=== PATIENT | female | born 1960 | race Two or more races ===

== ENCOUNTER 2022-07-04 19:09 | Inpatient (IN) | payer OTHER ==
[~2022-07-04] VITALS: Ht 165.1 cm; Wt 98.6 kg
[2022-07-04] MEDS ORDERED: ACETAMINOPHEN 325 MG TAB PO ONE (19:45)
[2022-07-04 20:46] LABS: Basophils # (auto) 0.1 10 ^3/uL (0-0.2); Eosinophils # (auto) 0 10 ^3/uL (0-0.8); Eosinophils % (auto) 0.1 % (0.0-7.0); Hematocrit 44.5 % (36.0-46.0); Hemoglobin 15.1 g/dL (12.2-16.2); Lymphocytes # (auto) 0.7 10 ^3/uL (0.4-5.4); Mean Corpuscular Hemoglobin 30.3 pg (28.0-32.0); Monocytes # (auto) 0.4 10 ^3/uL (0-1.3); Neutrophils # (auto) 9.1 10 ^3/uL (1.6-8.6); Neutrophils % (auto) 87.9 % (37.0-80.0); Red Cell Distribution Width 13.4 % (11.8-14.3); White Blood Cell 10.3 10^3/uL (4.4-10.8)
[2022-07-04 21:00] LABS: Alanine Aminotransferase 40 U/L (13-56); Albumin 4.1 g/dL (3.4-5.0); Anion Gap 12 (5-15); Aspartate Aminotransferase 40 U/L (15-37); BUN/Creatinine Ratio 18.2; Blood Urea Nitrogen 16 mg/dL (7-18); Calcium 9.1 mg/dL (8.5-10.1); Carbon Dioxide 23 mmol/L (21-32); Chloride 99 mmol/L (98-107); GFR African American 83 mL/min; GFR Non-African American 69 mL/min; Glucose 185 mg/dL (74-106); Sodium 134 mmol/L (136-145)
[2022-07-04 21:03] LABS: Alkaline Phosphatase 52 U/L (45-117); Bilirubin, Total 0.8 mg/dL (0.2-1.0); Total Protein 7.9 g/dL (6.4-8.2)
[2022-07-04] MEDS ORDERED: ALBUTEROL SULF 2.5 MG/0.5ML(0.5%) NEB SOLN NEB ONE (21:15)
[2022-07-04] MEDS ORDERED: methylPREDNISolone SOD SUCC 125 MG/2 ML VL IM ONE (21:15)
[2022-07-04 21:21] LABS: Potassium 2.9 mmol/L (3.5-5.1)
[2022-07-04] MEDS ORDERED: ONDANSETRON ODT 4 MG TAB PO ONE (21:45)
[2022-07-04] MEDS ORDERED: POTASSIUM CHL 20 Meq TABLET PO ONE (22:45)
[2022-07-05] MEDS ORDERED: SODIUM CHLORIDE 0.9% 1,000 ML IV ONE (00:45)
[2022-07-05] MEDS ORDERED: PIPERACILLIN-TAZOB 3.375GM 100 ML IV ONE (01:15)
[2022-07-05 02:29] LABS: Urine Bacteria NONE SEEN /hpf (None Seen); Urine Blood TRACE /uL (Negative); Urine WBC 2 /hpf (0 - 5)
[2022-07-05] MEDS ORDERED: ONDANSETRON HCL 4 MG/2 ML VIAL IV PRN (06:00)
[2022-07-05] MEDS ORDERED: DEXTROSE (50%) 50ML SYRG IV PRN (06:00)
[2022-07-05] MEDS: ACCU-CHEK COMFORT CURVE STRIP VI SCH ×4 (06:35→22:38)
[2022-07-05] MEDS: InsuLIN REG 1unit/0.01ml Soln (100units/ml) SC SCH ×4 (06:37→22:38)
[2022-07-05] MEDS ORDERED: IOHEXOL 350 MG/ML 100ML IJ ONE (07:45)
[2022-07-05] MEDS: ASPirin 81 mg TAB PO SCH (08:13)
[2022-07-05] MEDS: ENOXAPARIN SOD 40 MG/0.4 ML SYRINGE SC SCH (08:13)
[2022-07-05] MEDS: PANTOPRAZOLE 40 MG TAB PO SCH (08:13)
[2022-07-05] MEDS ORDERED: cefTRIAXone 1GM/50ML D5W 50 ML IV SCH (09:00)
[2022-07-05] MEDS ORDERED: AZITHROMYCIN 500MG/ 250ML 250 ML IV SCH (10:00)
[2022-07-05 11:15] VITALS: BP 153/70
[2022-07-05] MEDS: ACETAMINOPHEN 325 MG TAB PO PRN ×2 (12:46→22:40)
[2022-07-05 14:00] VITALS: BP 115/63
[2022-07-05] MEDS: POTASSIUM CHL 20MEQ/100ML 100 ML IV SCH ×2 (15:48→17:36)
[2022-07-05 18:00] VITALS: BP 142/68
[2022-07-05] MEDS: POTASSIUM EFFERVESENT TAB 25 MEQ PO SCH (22:38)
[2022-07-05 23:00] VITALS: BP_SYST 111; BP_SYST 133; BP_DIAS 61; BP_DIAS 72
[2022-07-06 02:14] VITALS: BP 133/61
[2022-07-06] MEDS ORDERED: METF-929 PO (04:15)
[2022-07-06] MEDS ORDERED: LOSA-39 PO (04:16)
[2022-07-06] MEDS ORDERED: GLIP5TAB12 PO (04:20)
[2022-07-06] MEDS ORDERED: CHLO25TA2 PO (04:21)
[2022-07-06] MEDS ORDERED: ATOR10TA PO (04:21)
[2022-07-06] MEDS ORDERED: GABA300C10 PO (04:22)
[2022-07-06] MEDS ORDERED: ERTU5TAB PO (04:23)
[2022-07-06] MEDS ORDERED: INSU100I57 SC (04:26)
[2022-07-06 05:00] VITALS: BP 115/50
[2022-07-06 06:19] LABS: Basophils # (auto) 0.2 10 ^3/uL (0-0.2); Basophils % (auto) 3.9 % (0.0-2.0); Eosinophils # (auto) 0.1 10 ^3/uL (0-0.8); Eosinophils % (auto) 1.1 % (0.0-7.0); Hematocrit 40.5 % (36.0-46.0); Hemoglobin 13.7 g/dL (12.2-16.2); Lymphocytes # (auto) 0.8 10 ^3/uL (0.4-5.4); Lymphocytes % (auto) 16.3 % (10.0-50.0); Mean Corpuscular Hemoglobin 30.3 pg (28.0-32.0); Mean Corpuscular Volume 89.1 fL (80.0-100.0); Monocytes # (auto) 0.5 10 ^3/uL (0-1.3); Monocytes % (auto) 10.5 % (0.0-12.0); Neutrophils # (auto) 3.3 10 ^3/uL (1.6-8.6); Neutrophils % (auto) 68.2 % (37.0-80.0); Nucleated Red Blood Cells % 0.1 %; Red Blood Cells 4.54 10^6/uL (4.0-5.20); Red Cell Distribution Width 13.4 % (11.8-14.3); White Blood Cell 4.8 10^3/uL (4.4-10.8)
[2022-07-06] MEDS: ACCU-CHEK COMFORT CURVE STRIP VI SCH ×4 (06:43→21:44)
[2022-07-06] MEDS: InsuLIN REG 1unit/0.01ml Soln (100units/ml) SC SCH ×4 (06:49→22:02)
[2022-07-06 06:58] LABS: Albumin 3.1 g/dL (3.4-5.0); BUN/Creatinine Ratio 18.7; Bilirubin, Total 0.7 mg/dL (0.2-1.0); Calcium 8.5 mg/dL (8.5-10.1); Potassium 3.5 mmol/L (3.5-5.1); Total Protein 6.5 g/dL (6.4-8.2)
[2022-07-06] MEDS: ENOXAPARIN SOD 40 MG/0.4 ML SYRINGE SC SCH (08:48)
[2022-07-06] MEDS: ASPirin 81 mg TAB PO SCH (08:48)
[2022-07-06] MEDS: PANTOPRAZOLE 40 MG TAB PO SCH (08:48)
[2022-07-06] MEDS: POTASSIUM EFFERVESENT TAB 25 MEQ PO SCH ×2 (08:49→21:39)
[2022-07-06 09:00] VITALS: BP 122/65
[2022-07-06 13:00] VITALS: BP 110/64
[2022-07-06 16:52] VITALS: BP 119/53
[2022-07-06 22:00] VITALS: BP 127/65
[2022-07-07 05:00] VITALS: BP 130/64
[2022-07-07] MEDS: ACCU-CHEK COMFORT CURVE STRIP VI SCH ×2 (06:40→11:30)
[2022-07-07] MEDS: InsuLIN REG 1unit/0.01ml Soln (100units/ml) SC SCH ×2 (06:40→11:30)
[2022-07-07 06:52] LABS: Basophils # (auto) 0 10 ^3/uL (0-0.2); Basophils % (auto) 0.4 % (0.0-2.0); Eosinophils # (auto) 0.1 10 ^3/uL (0-0.8); Eosinophils % (auto) 1.9 % (0.0-7.0); Hematocrit 38.8 % (36.0-46.0); Hemoglobin 13.3 g/dL (12.2-16.2); Lymphocytes # (auto) 1.1 10 ^3/uL (0.4-5.4); Lymphocytes % (auto) 32.5 % (10.0-50.0); Mean Corpuscular Hemoglobin 30.1 pg (28.0-32.0); Mean Corpuscular Hgb Conc. 34.2 g/dL (32.0-36.0); Mean Corpuscular Volume 87.8 fL (80.0-100.0); Monocytes # (auto) 0.6 10 ^3/uL (0-1.3); Monocytes % (auto) 17.1 % (0.0-12.0); Neutrophils # (auto) 1.6 10 ^3/uL (1.6-8.6); Neutrophils % (auto) 48.1 % (37.0-80.0); Nucleated Red Blood Cells % 0.1 %; Red Blood Cells 4.42 10^6/uL (4.0-5.20); Red Cell Distribution Width 13.3 % (11.8-14.3); White Blood Cell 3.3 10^3/uL (4.4-10.8)
[2022-07-07 07:11] LABS: Albumin 3.1 g/dL (3.4-5.0); Calcium 8.5 mg/dL (8.5-10.1); Potassium 3.6 mmol/L (3.5-5.1)
[2022-07-07 07:17] LABS: BUN/Creatinine Ratio 25.4; Total Protein 6.6 g/dL (6.4-8.2)
[2022-07-07 08:00] VITALS: BP 104/53
[2022-07-07 09:00] VITALS: BP 104/53
[2022-07-07] MEDS: ENOXAPARIN SOD 40 MG/0.4 ML SYRINGE SC SCH (09:51)
[2022-07-07] MEDS: PANTOPRAZOLE 40 MG TAB PO SCH (09:51)
[2022-07-07] MEDS: ASPirin 81 mg TAB PO SCH (09:51)
[2022-07-07] MEDS: POTASSIUM EFFERVESENT TAB 25 MEQ PO SCH (09:51)
[2022-07-07 13:00] VITALS: BP 124/54
[2022-07-07] MEDS ORDERED: LOPERAMIDE HCL 2 MG CAP/TAB PO PRN (14:30)
== END 2022-07-07 15:16 | disposition left against medical advice (07) | DRG 249 ==
LOC: ER 19:11 → OVERFLOW 07-05 06:00 → CENTRAL 07-05 22:18
PROVIDERS: ADMIT Nurse Practitioner; ATTEND Student in an Organized Health Care Education/Training Program
DX: A08.4 Viral intestinal infection, unspecified (principal); N17.9 Acute kidney failure, unspecified; E11.9 Type 2 diabetes mellitus without complications; I25.10 Atherosclerotic heart disease of native coronary artery without angina pectoris; E87.6 Hypokalemia; I10 Essential (primary) hypertension; M06.9 Rheumatoid arthritis, unspecified; Z20.822 Contact with and (suspected) exposure to COVID-19; R19.7 Diarrhea, unspecified; Z53.29 Procedure and treatment not carried out because of patient's decision for other reasons
CPT/HCPCS: 36415; 71045; 71275; 74176; 80053; 81001; 82962; 83605; 83690; 83880; 84132; 84484; 85025; 85379; 85652; 86141; 87040; 87045; 87077; 87186; 87426; 87427; 87493; 87804; 93005; 94640; 96361; 96365; 96367; G0378; J0696; J1815; J2543; J3480